=== PATIENT | male | born 1945 | race Caucasian/White ===

== ENCOUNTER 2025-03-14 14:33 | Outpatient (CLI) | payer MEDICARE | END 2025-03-14 14:34 | disposition home or self-care (01) | LOC: CSHULT 14:33 | PROVIDERS: ATTEND Internal Medicine | DX: I45.10 Unspecified right bundle-branch block (principal); I25.10 Atherosclerotic heart disease of native coronary artery without angina pectoris; R73.01 Impaired fasting glucose; E78.00 Pure hypercholesterolemia, unspecified; I51.7 Cardiomegaly; I08.0 Rheumatic disorders of both mitral and aortic valves | CPT/HCPCS: 93306 ==